=== PATIENT | male | born 1955 | race Caucasian/White ===

== ENCOUNTER → 2018-03-27 | Day surgery (SDC) | payer OTHER ==
--- NOTE | 2018-03-26 14:04 | RAD REPORT ---
EXAM DESCRIPTION: Terence Barnett (2 Views)03/26/2018 1:57 pm CLINICAL HISTORY: Preop for cardiac catheterization COMPARISON: None FINDINGS: The lungs appear clear of acute infiltrate. The heart is mildly to moderately enlarged. A sil is tortuous IMPRESSION: No acute abnormalities displayed
[2018-03-26 14:49] LABS: Absolute Lymphocytes (CBC) 1.4 K/uL (0.7-4.9); Absolute Monocytes 0.5 K/uL (0.1-1.3); Absolute Neutrophil 5.2 K/uL (1.8-8.0); Basophils % 0.9 % (0-1.3); Eosinophils % 3.5 % (0-4.4); Hematocrit 48.5 % (39.6-49.0); Lymphocytes % 18.8 % (15.3-44.8); MPV 8.6 fL (7.6-11.3); Monocytes % 6.6 % (3.3-12.3)
[2018-03-26 14:52] LABS: Protime INR 1.02
[2018-03-26 15:00] LABS: Potassium 4.5 mmol/L (3.5-5.1)
[~2018-03-27] MED LIST: FLUMAZENIL 0.1 MG/ML (5 mL VIAL) IV ONE; MIDAZOLAM HCL 5 MG/5 ML INJ ONE; NA CHLORIDE 0.9% 500 ML ONE
--- OUTSIDE RECORDS SUMMARY | 2018-03-27 06:45 | XMS REPORT ---
:1955 [facility] Address [address] [place] [address] Dr. Jones [address] [place] [id number] Care Team Providers Name Role Phone Unavailable Unavailable Unavailable Problems This patient has no known problems. Allergies, Adverse Reactions, Alerts This patient has no known allergies or adverse reactions. Medications This patient has no known medications.
--- NOTE | 2018-03-27 08:52 | OP ---
Date of Procedure: 03/27/2018 Surgeon: Liam Baptiste MD Color Straining Bag Washer: Nikki Vences. Total conscious sedation was 30 minutes. Procedure: Direct current cardioversion for atrial fibrillation. The patient was brought to the cleaner laboratory equipment as an outpatient, received a total of mg of Versed for IV sedation. Received 1 shock with 200 joules and converted to sinus rhythm. There were no com plications or blood loss. Postoperative Diagnosis: Atrial fibrillation to sinus rhythm. Plan: To increase his metoprolol to 100 b.i.d., start him on Norvasc. Continue his clonidine at [facility] e and Hyzaar. I will see him in the office in the next 2 weeks. He can go home whenever he wakes up . Flavorer: Kailyn Lemus Voice ID: [id number] Report ID: [id number]
--- NOTE | 2018-03-27 19:47 | EKG ---
Test Date: 2018-03-27 Test Time: 07:44:21 Scheduling Administrator: NOMAN MEASUREMENT RESULTS: Intervals: Rate: 77 TX: 224 QRSD: 110 QT: 438 QTc: 495 [place]: P: 32 TX: 224 QRS: -23 T: 19 INTERPRETIVE STATEMENTS: Sinus rhythm with 1st degree AV block Possible Left atrial enlargement Left ventricular hypertrophy Inferior infarct, age undetermined Anteroseptal infarct, age undetermined Abnormal ECG No previous ECG available for comparison Electronically Signed On 03-27-18 19:45:45 SENIOR [employer] DEVELOPER by Liam Baptiste
== END | disposition home or self-care (01) ==
LOC: CCL 06:42
PROC: 5A2204Z Restoration of Cardiac Rhythm, Single (ICD-10-PCS; principal; 2018-03-27)
DX: I48.91 Unspecified atrial fibrillation (principal); I10 Essential (primary) hypertension; E78.6 Lipoprotein deficiency; E66.9 Obesity, unspecified; Z68.41 Body mass index [BMI] 40.0-44.9, adult; Z87.891 Personal history of nicotine dependence; Z82.49 Family history of ischemic heart disease and other diseases of the circulatory system
CPT/HCPCS: 36415; 71046; 80048; 85025; 85610; 85730; 92960; 93005; J2250